=== PATIENT | male | born 2000 | race African-American/Black ===

== ENCOUNTER 2020-10-19 09:46 | Emergency (ER) | payer OTHER ==
[~2020-10-19] VITALS: Ht 170.2 cm; Wt 74.8 kg
[~2020-10-19 09:46] MED LIST: AZITHROMYC100 MG/51 PO; BACTRIM DS TAB1 EACH PO; NOHOMEMEDICATIONS; PEPCID20 MG PO; ZYRTEC10 M5 PO
--- NOTE | 2020-10-19 11:14 | EKG ---
[address] [address] ELECTROCARDIOGRAM REPORT Name: CARLOSCHERELLE JESSICA Room #: [facility].#: [id number] Admission: Attend Phys: Discharge: Date of : [birth year] Report #: [id number] 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
[2020-10-19 13:16] LABS: ABSOLUTE NEUTROPHILS 2.7 thou/uL (1.4-8.2); BASOPHILS 0.5 % (0.0-2.0); EOSINOPHILS 1.3 % (0.0-3.0); HEMATOCRIT 44.3 % (42.0-52.0); HEMOGLOBIN 15.4 gm/dL (14.0-18.0); LYMPHOCYTES 44.8 % (24.0-44.0); MCHC 34.7 g/dL (28.0-37.0); MCV 86.4 fL (80.0-100.0); MONOCYTES 6.6 % (1.0-8.0); PLATELET COUNT 238 thou/uL (150-400); POLYS 46.8 % (36.0-66.0); RBC 5.13 mil/uL (4.50-6.00); RDW 13.2 % (10.5-14.5); WBC 5.7 thou/uL (4.0-11.0)
[2020-10-19 13:23] LABS: CALCIUM 8.5 mg/dL (8.5-10.1); CREATININE 1.2 mg/dL (0.7-1.3)
[2020-10-19 13:29] LABS: TOTAL BILIRUBIN 0.5 mg/dL (0.2-1.0); TOTAL PROTEIN 6.8 g/dL (6.4-8.2)
[2020-10-19 16:30] VITALS: BP 130/63
== END 2020-10-19 17:11 | disposition home or self-care (01) ==
LOC: ER 09:46
PROVIDERS: Emergency Medicine
DX: R06.02 Shortness of breath (principal); R07.89 Other chest pain; F41.9 Anxiety disorder, unspecified; Z88.8 Allergy status to other drugs, medicaments and biological substances